=== PATIENT | female | born 1950 | race Caucasian/White ===

== ENCOUNTER 2019-02-28 10:43 | Outpatient (CLI) | payer MEDICARE, BC ==
[2019-02-28 11:35] LABS: CALCIUM, SERUM 8.6 mg/dL (8.5-10.1); CREATININE 0.9 mg/dL (0.6-1.3); POTASSIUM 4.1 mmol/L (3.5-5.1)
== END 2019-02-28 23:59 | disposition home or self-care (01) ==
LOC: LAB 10:43
PROVIDERS: ATTEND Internal Medicine Interventional Cardiology
DX: E87.5 Hyperkalemia (principal)
CPT/HCPCS: 36415; 80048-TC